=== PATIENT | male | born 1990 | race Caucasian/White ===

== ENCOUNTER 2019-01-31 13:31 | Observation (INO) | payer MEDICAID, SELFPAY ==
[2019-01-31 14:13] VITALS: BMI 27.1
[2019-01-31 14:17] VITALS: BMI 27.1
[2019-01-31 14:22] VITALS: BP 129/75; PULSE 77; PULSE 90; RESP 16; TEMP 36.7
[2019-01-31] MEDS: Buprenorphine HCl 2 MG TAB.SUBL SL ×2 (14:41→22:52)
--- NOTE | 2019-01-31 14:44 | HP.PCM_ITS ---
<Robert Pantoja - Last Filed: 01/31/19 14:40> Problem List (1) Opiate withdrawal Status: Acute (2) Nicotine abuse Status: Chronic (3) Cocaine abuse Status: Chronic (4) Septic arthritis Status: Resolved History of Present Illness Date of Admission: 01/31/19 Chief Complaint: heroin withdrawal The patient is a 28 year old M with past medical history of 7 years of opiate abuse, primarily heroin, with intermittent cocaine abuse, nicotine abuse, who underwent surgical cleanout of septic arthritis last September, subsequently followed by detention stay in 3 months of sobriety, who presented to the hospital medical stabilization program with ongoing heroin withdrawal. His current symptoms include restlessness, abdominal discomfort, headache, hot and cold sweats, and runny eyes. He last used at about 6 PM last night, he has been using about a half a gram per day. He primarily injects into his forearms and AC area bilaterally. There is no new redness, swelling, discharge from these areas. His discharge plan is to pursue outpatient therapy at [facility]. He plans to pursue a total hip repair 6 months following his last surgery. He smokes about 1 pack/day. He does not drink. He occasionally uses cocaine, last use was 1-2 weeks ago x1. [] Past Medical History Past Medical History (Chronic Problems): Chronic Problems Nicotine abuse (Chronic) Cocaine abuse (Chronic) Allergies Penicillins Allergy (Unknown, Verified 01/31/19 14:26) Other PT SAID THAT A CHILD HEEE WAS ADVISED NOT TO TAKE THEM- DOESN'T KNOW REACTION Surgical History: - - hip debridement Lives: With Family Smoking Status: Current every day smoker Tobacco Use: Cigarettes Alcohol: None Drugs: Cocaine, Heroin - *Family History Maternal History Items: No pertinent history Paternal History Items: No pertinent history Review of Systems Constitutional: Reports: - - hot and cold sweats, - - generalized restlessness. Denies: Chills, Fever, Weight Change Eyes: Reports: - - runny eyes HEENT: Denies: Head Aches, Sinus Congestion, Sinus Drainage Cardiovascular: Denies: Chest Pain, Chest Tightness, Heaviness, Light Headedness, Palpitations Respiratory: Denies: Cough, Shortness of Breath, Shortness of breath at rest, Sputum production Gastrointestinal: Reports: Abdominal Pain. Denies: Diarrhea, Nausea, Vomiting Genitourinary: Denies: Dysuria Musculoskeletal: Denies: Joint Pain, Joint Tenderness Skin: Denies: Rash, Wounds Neurological: Denies: Numbness, Tingling, Focal weakness Psychiatric: Denies: Anxiety, Depression, Homicidal Ideations, Suicidal Ideations Hematologic/ Lymphatic: Denies: Easy Bruising, Easy Bleeding VTE Information - Inpt Only VTE Present on Admission: No VTE Mechan Device Prophylaxis: None VTE Pharm Prophylaxis ordered?: No Reason prophylaxis not ordered:: Procedure Not Indicated Patient Problems: Active and Suspected Problems Opiate withdrawal (Acute) - Physical Exam General: Alert, Oriented x3, Cooperative HEENT: Atraumatic, PERRLA, EOMI, Normocephalic Neck: Supple, No JVD, Negative Carotid Bruits Lungs: Clear to auscultation, Normal air movement Cardiovascular: Regular rate, No murmurs Abdomen: Bowel Sounds Present, Soft, Non Tender Extremities: No edema, Capillary Refill Less than 3 Seconds Skin: No rashes, No breakdown, - - Extensive venous scarring in the bilateral hands, forearms, AC area. No areas of induration at this time, no areas of erythema, increased warmth, active wounds or sores. Extensive bruising. Musculoskeletal: No Tenderness to Palpation of Joints or Extremities Neurological: Cranial nerves II-XII grossly intact Psych/Mental Status: Normal Affect, Appropriate, Alert and oriented to time, place, person, mood and affect Vital Signs Temp Pulse Resp BP 98.1 F 90 16 129/75 H 01/31/19 14:22 01/31/19 14:22 01/31/19 14:22 01/31/19 14:22 Weight: 148 lb 3.2 oz Body Mass Index (BMI) 27.1 Assessment/Plan All Active Problems Opiate withdrawal (Acute) Septic arthritis (Resolved) 1. Acute heroin withdrawal-current symptoms include restlessness, abdominal pain, runny eyes. He uses about half a gram per day. Last use 6 PM last night. Initiate opiate withdrawal protocol Subutex. Also has used cocaine in the past-last use 1-2 weeks ago. He has multiple injection sites but at this time to do not appear acutely inflamed. 2. Nicotine abuse-smokes 1 pack/day-add patch 3. History of septic arthritis-this was cleaned out last September. He was sober for 3 months following while in a half-way. He has to wait for a total of 6 months before he can have his hip replacement. DVT prophylaxis: Early ambulation Medical stabilization day 1 of 4 This patient was seen by Robert Pantoja PA-C under the supervision of Doctor Nguyen. <Messi Cedillo F - Last Filed: 01/31/19 16:51> History of Present Illness The patient is a 28 year old M [] Past Medical History Allergies Penicillins Allergy (Unknown, Verified 01/31/19 14:26) Other PT SAID THAT A CHILD HEEE WAS ADVISED NOT TO TAKE THEM- DOESN'T KNOW REACTION - Physical Exam Vital Signs Temp Pulse Resp BP 98.1 F 90 16 129/75 H 01/31/19 14:22 01/31/19 14:22 01/31/19 14:22 01/31/19 14:22 Weight: 148 lb 3.2 oz Body Mass Index (BMI) 27.1 Code Visit Addendum: Dr. Cedillo I personally examined the patient and reviewed the chart. I agree with the above. 28-year-old male who presents for opiate withdrawal. He last used half a gram of heroin yesterday. He also has a history of a septic arthritis in his hip from IV drug use and he needs to be clean for 6 months before he can proceed with a total hip replacement. Continue with the [facility] protocol opiate withdrawal. Inpatient E&M: 90274 Init Hosp L2
--- NOTE | 2019-01-31 16:29 | CHAPLAIN ---
Type of Pastoral Visit _x__ Initial Visit ___ Follow-up Visit ___ On-call Visit ___ General Patient Visit ___ Spiritual Assessment ___ Family Conference ___ Bereavement ___ Rapid Response ___ Code Blue ___ Other (describe below) Pastoral Care Referral From _x__ Patient ___ Family ___ Nurse ___ Physician ___ Airway Traffic Controller ___ Perforator Operator ___ Other (describe below) Sacrament/Intervention _x__ Active listening ___ Anointing ___ Amish ___ Bereavement ___ Communion _x__ Nasra exploration ___ _x__ Life review _x__ Prayer ___ Reconciliation ___ Sacrament of Sick _x__ Supportive presence ___ Wedding ___ Other (describe below) Pastoral Comments patient describes some background information and previous recovery from addiction; pt has family support he states; pt also speaks of a friend who has become clean through relationship with [facility] and this has opened his interest in spiritual things;
[2019-01-31 16:57] VITALS: BP 130/72; PULSE 84; RESP 16; TEMP 36.7
[2019-01-31] MEDS: cloNIDine HCl 0.1 MG Tablet PO ×2 (18:09→20:33)
[2019-01-31] MEDS: Dicyclomine 10 MG Capsule 20 MG PO (18:09)
[2019-01-31 20:26] VITALS: BP 118/78; PULSE 71; RESP 16; TEMP 36.6
[2019-01-31] MEDS: Pramipexole Di-HCl 0.25 MG Tablet PO (20:33)
[2019-01-31] MEDS: Methocarbamol 750 MG Tablet PO (20:33)
[2019-01-31] MEDS: hydrOXYzine PAM 25 MG Capsule 50 MG PO (20:33)
[2019-01-31 22:49] VITALS: BP 107/76; PULSE 63; RESP 16; TEMP 36.8
[2019-02-01 02:53] VITALS: BP 104/63; PULSE 72; RESP 16; TEMP 36.4
[2019-02-01] MEDS: Buprenorphine HCl 2 MG TAB.SUBL SL ×3 (06:21→22:30)
[2019-02-01 06:23] VITALS: BP 102/63; PULSE 72; RESP 18; TEMP 36.6
[2019-02-01 09:10] VITALS: BP 112/72; PULSE 77; RESP 16; TEMP 36.6
--- NOTE | 2019-02-01 09:12 | PCM.PN.HOSP ---
Patient Problems: Active and Suspected Problems Opiate withdrawal (Acute) Subjective: feels better. Still with nausea, myalgias, but overall improved. Vitals/I&O's: Vital Signs Temp Pulse Resp BP 36.6 C 72 18 102/63 02/01/19 06:23 02/01/19 06:23 02/01/19 06:23 02/01/19 06:23 Weight: 67.222 kg Body Mass Index (BMI) 27.1 Intake and Output for Last 24 Hours 01/30/19 01/31/19 02/01/19 23:59 23:59 23:59 Intake Total 350 / 350 240 / 240 Balance 350 / 350 240 / 240 General: Alert, No apparent distress HEENT: Atraumatic, Normocephalic Oral: Moist Mucosa, No Gingival or Mucosal Lesions/ Ulcerations Neck: No Nodes, Thyroid Normal Size and Texture Lungs: Clear to auscultation, Normal air movement, No rhonchi, No wheeze Cardiovascular: Regular rate, Regular Rhythm, Normal S1, Normal S2, No murmurs Abdomen: Bowel Sounds Present, Soft, Non Tender, Non-Distended, No Hepato-splenomegaly Extremities: No edema, No Calf Tenderness Skin: No rashes, No breakdown Psych/Mental Status: Normal Affect, Appropriate Current Medications Buprenorphine HCl (Buprenorphine Hcl) 4 mg SL Q8H VICTORIA; Taper Stop: 02/03/19 18:44 Last Admin: 02/01/19 06:21 Dose: 4 mg Clonidine (Catapres) 0.1 mg PO Q2H PRN PRN PRN Reason: Hot/Cold Sweats or Anxiety Last Admin: 01/31/19 20:33 Dose: 0.1 mg Dicyclomine HCl (Bentyl) 20 mg PO Q6H PRN PRN PRN Reason: Abdomnial Discomfort Last Admin: 01/31/19 18:09 Dose: 20 mg Hydroxyzine Pamoate (Vistaril Pamoate Capsule) 50 mg PO Q6H PRN PRN PRN Reason: Mild Anxiety Last Admin: 01/31/19 20:33 Dose: 50 mg Magnesium Hydroxide (Milk Of Magnesia) 30 ml PO DAILY PRN PRN PRN Reason: Constipation Methocarbamol (Methocarbamol) 750 mg PO Q6H PRN PRN PRN Reason: Muscle Aches Last Admin: 01/31/19 20:33 Dose: 750 mg Nicotine (Nicoderm Cq (Pbkc)) 21 mg TRANSDERM. DAILY VICTORIA Last Admin: 01/31/19 15:01 Dose: 21 mg Pramipexole Dihydrochloride (Mirapex) 0.25 mg PO Q12H PRN PRN PRN Reason: Restless Legs Last Admin: 01/31/19 20:33 Dose: 0.25 mg Medical Necessity - Tobacco Use Smoking Status: Current every day smoker Tobacco Use: Cigarettes Assessment/Plan All Active Problems Opiate withdrawal (Acute) Septic arthritis (Resolved) 1. Acute heroin withdrawal: Improved today. Patient on the buprenorphine taper. The taper will run through the morning of the . After which, the patient will be discharged. Patient has other medications to help with somatic complaints if necessary. Patient to pursue outpatient therapy at [facility] upon discharge. Code Visit Inpatient E&M: 36509 Subs Hosp L2
--- NOTE | 2019-02-01 09:15 | PN_ITS ---
Patient Problems: Active and Suspected Problems Opiate withdrawal (Acute) Subjective: feels better. Still with nausea, myalgias, but overall improved. Vitals/I&O's: Vital Signs Temp Pulse Resp BP 36.6 C 72 18 102/63 02/01/19 06:23 02/01/19 06:23 02/01/19 06:23 02/01/19 06:23 Weight: 67.222 kg Body Mass Index (BMI) 27.1 Intake and Output for Last 24 Hours 01/30/19 01/31/19 02/01/19 23:59 23:59 23:59 Intake Total 350 / 350 240 / 240 Balance 350 / 350 240 / 240 General: Alert, No apparent distress HEENT: Atraumatic, Normocephalic Oral: Moist Mucosa, No Gingival or Mucosal Lesions/ Ulcerations Neck: No Nodes, Thyroid Normal Size and Texture Lungs: Clear to auscultation, Normal air movement, No rhonchi, No wheeze Cardiovascular: Regular rate, Regular Rhythm, Normal S1, Normal S2, No murmurs Abdomen: Bowel Sounds Present, Soft, Non Tender, Non-Distended, No Hepato- splenomegaly Extremities: No edema, No Calf Tenderness Skin: No rashes, No breakdown Psych/Mental Status: Normal Affect, Appropriate Current Medications Buprenorphine HCl (Buprenorphine Hcl) 4 mg SL Q8H VICTORIA; Taper Stop: 02/03/19 18:44 Last Admin: 02/01/19 06:21 Dose: 4 mg Clonidine (Catapres) 0.1 mg PO Q2H PRN PRN PRN Reason: Hot/Cold Sweats or Anxiety Last Admin: 01/31/19 20:33 Dose: 0.1 mg Dicyclomine HCl (Bentyl) 20 mg PO Q6H PRN PRN PRN Reason: Abdomnial Discomfort Last Admin: 01/31/19 18:09 Dose: 20 mg Hydroxyzine Pamoate (Vistaril Pamoate Capsule) 50 mg PO Q6H PRN PRN PRN Reason: Mild Anxiety Last Admin: 01/31/19 20:33 Dose: 50 mg Magnesium Hydroxide (Milk Of Magnesia) 30 ml PO DAILY PRN PRN PRN Reason: Constipation Methocarbamol (Methocarbamol) 750 mg PO Q6H PRN PRN PRN Reason: Muscle Aches Last Admin: 01/31/19 20:33 Dose: 750 mg Nicotine (Nicoderm Cq (Pbkc)) 21 mg TRANSDERM. DAILY VICTORIA Last Admin: 01/31/19 15:01 Dose: 21 mg Pramipexole Dihydrochloride (Mirapex) 0.25 mg PO Q12H PRN PRN PRN Reason: Restless Legs Last Admin: 01/31/19 20:33 Dose: 0.25 mg Medical Necessity - Tobacco Use Smoking Status: Current every day smoker Tobacco Use: Cigarettes Assessment/Plan All Active Problems Opiate withdrawal (Acute) Septic arthritis (Resolved) 1. Acute heroin withdrawal: Improved today. Patient on the buprenorphine taper. The taper will run through the morning of the . After which, the patient will be discharged. Patient has other medications to help with somatic complaints if necessary. Patient to pursue outpatient therapy at [facility] upon discharge. Code Visit Inpatient E&M: 47581 Subs Hosp L2
[2019-02-01 14:00] VITALS: BP 118/77; PULSE 79; RESP 16; TEMP 36.7
[2019-02-01] MEDS: Methocarbamol 750 MG Tablet PO ×2 (14:34→20:47)
[2019-02-01 22:28] VITALS: BP 118/75; PULSE 71; RESP 16; TEMP 36.9
[2019-02-02 06:04] VITALS: BP 106/63; PULSE 64; RESP 14; TEMP 36.8
[2019-02-02] MEDS: Buprenorphine HCl 2 MG TAB.SUBL SL (06:07)
[2019-02-02 07:57] VITALS: BP 116/73; PULSE 60; RESP 16; TEMP 36.5; O2SAT 99
--- NOTE | 2019-02-02 08:01 | DCINST_ITS ---
- Discharge Diagnoses Current Active Problems: Current Active and Chronic Problems Opiate withdrawal (Acute) Nicotine abuse (Chronic) Cocaine abuse (Chronic) You will use the following diet at home:: No restrictions Your food should be the consistency of: Regular Your liquids should be the consistency of: Regular/Thin Discharge Activity: Return to Normal Activity Allergies/Adverse Reactions: Allergies Penicillins Allergy (Unknown, Verified 01/31/19 14:26) Other PT SAID THAT A CHILD HEEE WAS ADVISED NOT TO TAKE THEM- DOESN'T KNOW REACTION Medications to take at Discharge Ibuprofen 2 - 3 mg PO Q4H PRN #1 tablet 02/02/19 The following prescriptions were given: Ibuprofen 2 - 3 mg PO Q4H PRN #1 tablet PRN Reason: pain. muscle aches. Test Results: Test results from this visit will be discussed in further detail at your follow- up appointment, if applicable. Please Follow Up With: David Bunn When: next week Proposed Discharge Date: 02/02/19
--- NOTE | 2019-02-02 08:01 | PCM.DC.SUM ---
Discharge Date and Diagnosis - Problem List Patient Problems: Active and Suspected Problems Opiate withdrawal (Acute) Date of Admission: 01/31/19 Date of Discharge: 02/02/19 - Primary Discharge Diagnosis Active and Suspected Problems Opiate withdrawal (Acute) - Secondary Discharge Diagnosis Chronic Problems Nicotine abuse (Chronic) Cocaine abuse (Chronic) Hospital Course and Treatment Operations: None Procedures: None Summary of Care Provided: The patient is a 28 year old M presented for treatment for IV heroin withdrawal. Presented [facility]. Patient was initiated on buprenorphine taper. Patient's hospitalization was unremarkable. Patient is feeling better. Patient states today, that he would need to leave today rather than when he plan to be discharged after completing his taper on the . He stated that there was due to transportation issues and that he would not have an issue tomorrow as was initially planned. I discussed with him that if he feels comfortable with being discharged today than that is certainly fine. Patient is to follow-up at [facility] for further addiction treatment and counseling. [] Patient Problems: Active and Suspected Problems Opiate withdrawal (Acute) - Physical Exam General: Alert, No apparent distress HEENT: Atraumatic, Normocephalic Oral: Moist Mucosa, No Gingival or Mucosal Lesions/ Ulcerations Psych/Mental Status: Normal Affect, Appropriate Vital Signs Temp Pulse Resp BP Pulse Ox 36.5 C L 60 16 116/73 99 02/02/19 07:57 02/02/19 07:57 02/02/19 07:57 02/02/19 07:57 02/02/19 07:57 Oxygen Delivery Method Room Air Weight: 67.222 kg Body Mass Index (BMI) 27.1 Intake and Output for Last 24 Hours 01/31/19 02/01/19 02/02/19 23:59 23:59 23:59 Intake Total 350 / 350 790 / 790 1000 / 1000 Balance 350 / 350 790 / 790 1000 / 1000 Discharge Diet: No Restrictions Discharge Activity: Return to Normal Activity Home Medications: Medications to take at Discharge Ibuprofen 2 - 3 mg PO Q4H PRN #1 tablet 02/02/19 Following Prescrptions Were Given to Patient: Ibuprofen 2 - 3 mg PO Q4H PRN #1 tablet PRN Reason: pain. muscle aches. Please Follow Up With: [facility] When: next week Disposition: Home Minutes spent on discharge:: 24 Patient Condition:: Good Medical Necessity - Tobacco Use Smoking Status: Current every day smoker Tobacco Use: Cigarettes Meaningful Use Info Meaningful Use Diagnoses (Choose all that apply): None applicable Code Visit Inpatient E&M: 92521 Disch Hosp
[2019-02-02] MEDS: cloNIDine HCl 0.1 MG Tablet PO (08:02)
[2019-02-02] MEDS: Methocarbamol 750 MG Tablet PO (08:02)
== END 2019-02-02 12:02 | disposition home or self-care (01) | DRG 773 ==
LOC: MS3 02-19 12:16 → MS2 02-19 12:16
PROVIDERS: Admitting Provider Family Medicine; Referring Provider Family Medicine
DX: F11.23 Opioid dependence with withdrawal (principal); F17.210 Nicotine dependence, cigarettes, uncomplicated; F14.10 Cocaine abuse, uncomplicated
CPT/HCPCS: 99218; 99406; G0378; G0379